=== PATIENT | female | born 1980 | race Two or more races ===

== ENCOUNTER 2020-06-10 17:08 | Outpatient (CLI) | payer BC, SELFPAY ==
--- NOTE | ~2020-06-10 | MM_ITS ---
EXAMINATION: MM screening [facility] BI w saida HISTORY: Screening mammogram TECHNIQUE: Craniocaudal and mediolateral oblique 3-D tomosynthesis images were obtained and synthetic 2-D images were generated. CAD analysis was submitted and interpreted. COMPARISON: 04/12/2019 bilateral digital screening mammogram BREAST PARENCHYMAL COMPOSITION: The breasts are almost entirely fatty. FINDINGS: There is no evidence of suspicious mass, calcification, or architectural distortion to sugg est malignancy in either breast. There has been no suspicious interval change. IMPRESSION: 1. No mammographic evidence of malignancy. 2. Recommend routine screening mammography in one year. BI-RADS Category 1: Negative Reviewed, dictated and finalized at location A. [employer] TRA[employer]OL TECHNICIAN
== END 2020-06-10 17:09 | disposition home or self-care (01) ==
LOC: ANHIMG 17:15
PROVIDERS: PCP Emergency Medicine
DX: Z12.31 Encounter for screening mammogram for malignant neoplasm of breast (principal)
CPT/HCPCS: 77063; 77067

== ENCOUNTER 2021-07-16 16:19 | Outpatient (CLI) | payer BC, SELFPAY ==
--- NOTE | ~2021-07-16 | MM_ITS ---
EXAMINATION: MM screening [facility] BI w saida HISTORY: Screening mammogram TECHNIQUE: Craniocaudal and mediolateral oblique 3-D tomosynthesis images were obtained and synthetic 2-D images were generated. CAD analysis was submitted and interpreted. COMPARISON: 06/10/2020, 04/12/2019 BREAST PARENCHYMAL COMPOSITION: There are scattered areas of fibroglandular density. FINDINGS: There is no evidence of suspicious mass, calcification, or architectural distortion to sugg est malignancy in either breast. There has been no suspicious interval change. IMPRESSION: 1. No mammographic evidence of malignancy. 2. Recommend routine screening mammography in one year. BI-RADS Category 1: Negative Reviewed, dictated and finalized at location A. TER FISHERMAN
== END 2021-07-16 16:20 | disposition home or self-care (01) ==
LOC: ANHIMG 16:21
PROVIDERS: PCP Emergency Medicine
DX: Z12.31 Encounter for screening mammogram for malignant neoplasm of breast (principal)
CPT/HCPCS: 77063; 77067

== ENCOUNTER 2021-09-25 15:29 | Emergency (ER) | payer BC, SELFPAY ==
[2021-09-25 15:38] VITALS: BP 155/68; PULSE 90; RESP 16; TEMP 37.3; O2SAT 98
--- NOTE | 2021-09-25 16:19 | ED.URI ---
HPI - URI/Sore Throat General Chief Complaint: Upper Respiratory Infection Stated Complaint: uri Time Seen by Provider: 09/25/21 16:04 Source: patient and RN notes reviewed Mode of arrival: ambulatory Limitations: no limitations History of Present Illness HPI Narrative: Patient presents today complaining of 4-day history productive cough, copious postnasal drip and rhinorrhea, with 3 episodes of diarrhea that started today. Denies any blood or mucus in her stool. Denies abdominal pain. Denies shortness of breath, fever, sore throat, ear pain. This week she has taken 2 home COVID-19 test that were negative. She has also been taking NyQuil cold and flu and Benadryl without much relief. Patient also states she has allergies. MD elicited complaint: cough and rhinorrhea Related Data Home Medications Medication Instructions Recorded Confirmed norethindrone (contraceptive) 0.35 mg PO DAILY 09/25/21 09/25/21 Allergies Allergy/AdvReac Type Severity Reaction Status Date / Time amoxicillin AdvReac Unknown YEAST Verified 09/25/21 15:32 INFECTION Review of Systems Review of Systems: CONSTITUTIONAL: Denies body aches, fever, chills, or sweats. EYES: Denies visual changes, redness, or discharge. ENT: Denies congestion, sore throat, or otalgia.+ Rhinorrhea, postnasal drip CARDIOVASCULAR: Denies chest pain, palpitations, or edema. RESPIRATORY: Denies dyspnea.+ Cough GASTROINTESTINAL: Denies abdominal pain, nausea, vomiting. + Diarrhea GENITOURINARY: Denies dysuria or hematuria. SKIN: Denies rash, itching, or wounds. MUSCULOSKELETAL: Denies back pain, joint pain, or myalgia. NEUROLOGIC: Denies headache, numbness, tingling, or weakness. PSYCH: Denies depression or anxiety. PMFSH Comments At time of signature, I have reviewed and agree with nursing past medical, surgical, social and family history unless otherwise noted. Please see nursing chart for further information. There is no relevant family history pertinent to the presenting complaint Exam Narrative: GENERAL: Well-appearing, well-nourished, and in no acute distress. HEAD: Normocephalic, atraumatic. EYES: EOMI. No redness or drainage. Conjunctivae normal. ENT: Mucous membranes pink and moist. Nares congested bilaterally with rhinorrhea. No rhinorrhea. TMs normal bilaterally. Throat normal. Uvula midline. NECK: Normal AROM. Supple. No lymphadenopathy. CHEST: No respiratory distress. Clear to auscultation. HEART: Regular rate and rhythm. No murmur appreciated. Normal peripheral pulses. EXTREMITIES: Normal range of motion. No edema. SKIN: Warm, dry, no rash. Capillary refill normal. Normal skin turgor. NEURO: No focal deficits. Alert and oriented x3. Gait steady. PSYCH: Normal affect. No signs of depression or anxiety. Course Course Level of Care: Express Care Visit Vital Signs Vital signs: Vital Signs Temperature 99.2 F 09/25/21 15:38 Pulse Rate 90 09/25/21 15:38 Respiratory Rate 16 09/25/21 15:38 Blood Pressure 155/68 H 09/25/21 15:38 Pulse Oximetry 98 09/25/21 15:38 Temperature 99.2 F 09/25/21 15:38 Pulse Rate 90 09/25/21 15:38 Respiratory Rate 16 09/25/21 15:38 Blood Pressure 155/68 H 09/25/21 15:38 Pulse Oximetry 98 09/25/21 15:38 Reviewed. Pt has been instructed to follow up with her PCP regarding her elevated blood pressure today. MDM - URI/Sore Throat Differential Diagnosis Differential diagnosis: Likely upper respiratory infection, sinusitis, viral infection, bronchitis and other (Gastroenteritis, colitis) Critical Care Time Critical Care Time Critical Care Time: No Discharge Plan Discharge Clinical Impression: Viral syndrome Patient Disposition: Home, Self-Care Condition: Stable Instructions: Viral Syndrome (ED) Additional Instructions: Your symptoms are likely due to a viral illness, which is not treated with antibiotics. Virus symptoms can last for up to 10-14 days. Take Tylen
== END 2021-09-25 16:27 | disposition home or self-care (01) ==
PROVIDERS: Emergency Provider Nurse Practitioner
DX: B34.9 Viral infection, unspecified (principal)
CPT/HCPCS: 99213; G0463

== ENCOUNTER 2021-10-30 18:40 | Emergency (ER) | payer BC, SELFPAY ==
[2021-10-30 18:48] VITALS: BP 135/64; PULSE 74; RESP 16; TEMP 36.9; O2SAT 100
--- NOTE | 2021-10-30 19:29 | ED.EAR ---
HPI - Ear Problem General Chief complaint: Ear Stated complaint: Ear Pain Time Seen by Provider: 10/30/21 19:30 Source: patient Mode of arrival: ambulatory Limitations: no limitations History of Present Illness HPI Narrative: 41-year-old female presents with complaint of left-sided neck jaw pain since this morning. Reports that left side of neck felt swollen. It is painful when chewing. Does not think it is related to any type of dental infection. No known cavities or bad teeth. Denies fever chills. Denies ear pain. Denies change in hearing. No URI symptoms. All systems reviewed and negative except as noted above. Related Data Home Medications Medication Instructions Recorded Confirmed norethindrone (contraceptive) 0.35 mg PO DAILY 09/25/21 10/30/21 Allergies Allergy/AdvReac Type Severity Reaction Status Date / Time amoxicillin AdvReac Intermediate YEAST Verified 10/30/21 19:07 INFECTION Review of Systems Review of Systems: CONSTITUTIONAL: Denies fever, chills, or sweats. EYES: Denies visual changes, redness, or discharge. ENT: Denies rhinorrhea, congestion, sore throat, or otalgia. Reports pain to right side of jaw and neck. CARDIOVASCULAR: Denies chest pain, palpitations, or edema. RESPIRATORY: Denies cough or dyspnea. GASTROINTESTINAL: Denies abdominal pain, nausea, vomiting, or diarrhea. GENITOURINARY: Denies dysuria or hematuria. SKIN: Denies rash or itching. MUSCULOSKELETAL: Denies back pain, joint pain, or myalgia. NEUROLOGIC: Denies headache, numbness, or weakness. PSYCHIATRIC: Denies anxiety or depression. All other systems reviewed are negative, except as documented in HPI. PMFSH Comments At time of signature, agree with nursing past medical, surgical, social and family history. There is no relevant family history pertinent to the presenting complaint. Exam Narrative: GENERAL: This is a well-nourished, well-developed patient, in no apparent distress. HEAD: normocephalic, atraumatic. EYES: PERRL. Sclera clear/white. Vision is grossly intact. EARS: External ears normal, auditory canals clear and without drainage, TMs normal without perforation. Hearing grossly intact. NOSE: External nose normal THROAT: Mucous membranes moist, posterior pharynx clear. Mouth: No broken or decayed teeth. No dental abscess noted. NECK: Enlargement of left parotid gland and enlargement of submandibular lymph nodes on left side. Tender on palpation. CARDIOVASCULAR: Regular rate and rhythm without murmurs, gallops, or rubs. RESPIRATORY: Clear to auscultation. Breath sounds equal bilaterally. No wheezes, rales, or rhonchi. SKIN: warm, Dry, intact with no suspicious lesions or rash, good texture and turgor. NEURO: awake, alert, and oriented to person, place and time. There were no obvious focal neurologic abnormalities. EXTREMITIES: Normal range of motion to all extremities. Course Course Level of Care: Express Care Visit Vital Signs Vital signs: Vital Signs Temperature 36.9 C 10/30/21 18:48 Pulse Rate 74 10/30/21 18:48 Respiratory Rate 16 10/30/21 18:48 Blood Pressure 135/64 10/30/21 18:48 Pulse Oximetry 100 10/30/21 18:48 Temperature 36.9 C 10/30/21 18:48 Pulse Rate 74 10/30/21 18:48 Respiratory Rate 16 10/30/21 18:48 Blood Pressure 135/64 10/30/21 18:48 Pulse Oximetry 100 10/30/21 18:48 Reviewed Medical Decision Making MDM Narrative Medical decision making narrative: Patient is aware of diagnosis, understands and agrees to treatment plan. Anticipatory guidance given. Patient agrees to follow-up as directed and is aware of reasons to seek care at the emergency department. Portions of this record may have been created with voice recognition software Vital Signs Vital Signs: Vital Signs Temperature 36.9 C 10/30/21 18:48 Pulse Rate 74 10/30/21 18:48 Respiratory Rate 16 10/30/21 18:48 Blood Pressure 135/64 10/30/21 18:48 Pulse Oximetry 100 10/30
== END 2021-10-30 19:40 | disposition home or self-care (01) ==
PROVIDERS: Emergency Provider Nurse Practitioner Family; PCP Emergency Medicine
DX: K11.20 Sialoadenitis, unspecified (principal); I10 Essential (primary) hypertension
CPT/HCPCS: 99213; G0463

== ENCOUNTER 2022-05-11 08:51 | Emergency (ER) | payer BC, SELFPAY ==
--- NOTE | 2022-05-11 09:13 | ED.URI ---
HPI - URI/Sore Throat General Chief Complaint: Upper Respiratory Infection Stated Complaint: cough/fever Time Seen by Provider: 05/11/22 09:13 Source: patient and RN notes reviewed Mode of arrival: ambulatory Limitations: no limitations History of Present Illness HPI Narrative: 42-year-old female presents to the [facility] with her son. Reports 8-year-old son's been sick since . She started with symptoms of fever, cough and body aches on Tuesday. Has tried Vicks cough and cold with minimal relief. MD elicited complaint: nasal congestion Related Data Home Medications Medication Instructions Recorded Confirmed norethindrone (contraceptive) 0.35 0.35 mg PO DAILY 09/25/21 05/11/22 mg tablet Allergies Allergy/AdvReac Type Severity Reaction Status Date / Time Penicillins Allergy Intermediate Rash Verified 05/11/22 09:54 amoxicillin AdvReac Intermediate YEAST Verified 05/11/22 09:21 INFECTION Review of Systems Review of Systems: All systems reviewed & are unremarkable except as noted in HPI and below Constitutional: Constitutional: Reports as per HPI, Reports chills and Reports fever(s) Eyes: Eyes: Reports no additional eye complaints ENT: Reports system reviewed and no additional complaints, except as documented Cardiovascular: Cardiovascular: Reports no additional cardiovascular complaints Respiratory: Respiratory: Reports as per HPI, Reports no additional respiratory complaints, Reports chest congestion, Reports cough, Denies dyspnea and Denies wheezing Gastrointestinal: Gastrointestinal: Reports no additional gastrointestinal complaints Musculoskeletal: Musculoskeletal: Reports no additional musculoskeletal complaints Integumentary/Breasts: Skin/Breast: Reports system reviewed and no additional complaints, except as docu Neurologic: Reports system reviewed and no additional complaints, except as documented Psychiatric: Psychiatric: Reports no additional psychiatric complaints Allergic/Immunologic: Allergic/Immunologic: Reports no additional allergic/immunologic complaints [facility] Social History Social History (Updated 05/11/22 @ 18:53 by Kandace Zhu, SUE) Living arrangements: with family Gender identity (if verbalized by the patient): Female Comments At the time of my signature, I reviewed and agree with the nursing past medical, surgical, social, and family history. There is no relevant family history pertinent to the patient complaint. Exam Const: General: healthy appearing, no acute distress, alert and well nourished Nutritional Appearance: well nourished and obese Orientation/consciousness: patient oriented x3 Limitations: no limitations HENMT: Head: normal to inspection Ears: external ears normal, TM's normal bilaterally and EAC's normal Face/Nose/Sinus: Nasal discharge present clear Face and sinus: normal facial exam Mouth: Yes Normal oral and palatal mucosa present, Yes lip normal and Yes moist mucous membranes Throat: posterior oropharynx normal and uvula midline Eyes: General: appearance normal, both eyes and all related structures Conjunctivae: conjunctivae normal Pupils: Equal, round and reactive pupils present Neck: Neck: normal visual inspection, no lymphadenopathy and no meningeal signs Chest: Chest palpation & inspection: normal inspection of the chest Resp: Effort & Inspection: normal respiratory effort and no use of accessory muscles Auscultation: clear to auscultation bilaterally, no crackles, no rales, no rhonchi and no wheezes Cardio: Rate: regular rate Rhythm: regular rhythm Skin: General skin exam: normal color Rashes: no rashes Wounds: no wounds Neuro: General: patient oriented x3, moves all extremities, no meningeal signs and no focal motor deficits Cranial nerves: Yes Equal, round and reactive pupils present Speech: normal speech Gait exam (Neuro): Normal gait present Extrem: General: normal to inspection, full ROM and capillary refill nor
[2022-05-11 09:19] VITALS: BP 137/81; PULSE 115; RESP 16; TEMP 37.7; O2SAT 97
== END 2022-05-11 10:19 | disposition home or self-care (01) ==
PROVIDERS: Emergency Provider Nurse Practitioner; PCP Emergency Medicine
DX: J10.1 Influenza due to other identified influenza virus with other respiratory manifestations (principal)
CPT/HCPCS: 87804; 99213; G0463

== ENCOUNTER 2022-09-02 09:06 | Outpatient (RCR) | payer BC, SELFPAY ==
[2022-09-02 09:22] VITALS: BMI 44.2
[2022-09-02 10:19] VITALS: BMI 44.2
== END 2022-10-25 14:59 | disposition home or self-care (01) ==
LOC: ANHDMC 09:06
PROVIDERS: PCP Family Medicine; Visit Provider Family Medicine
DX: E11.9 Type 2 diabetes mellitus without complications (principal); Z71.3 Dietary counseling and surveillance; Z71.89 Other specified counseling
CPT/HCPCS: 97802; G0108

== ENCOUNTER 2022-11-11 08:33 | Outpatient (CLI) | payer BC, SELFPAY ==
--- NOTE | ~2022-11-11 | MM_ITS ---
EXAMINATION: MM screening [facility] BI w saida HISTORY: Screening mammogram TECHNIQUE: Craniocaudal and mediolateral oblique 3-D tomosynthesis images were obtained and synthetic 2-D images were generated. CAD analysis was submitted and interpreted. COMPARISON: 07/16/2021, 06/10/2020, 04/12/2019 BREAST PARENCHYMAL COMPOSITION: There are scattered areas of fibroglandular density. FINDINGS: No suspicious mass, calcification, or architectural distortion are identified in either darryl ast to suggest malignancy. There has been no suspicious interval change. IMPRESSION: 1. No mammographic evidence of malignancy. 2. Recommend routine screening mammography in one year. BI-RADS Category 1: Negative Reviewed, dictated and finalized at location A.
== END 2022-11-11 08:34 | disposition home or self-care (01) ==
LOC: ANHIMG 08:36
PROVIDERS: PCP Family Medicine; Visit Provider Student in an Organized Health Care Education/Training Program
DX: Z12.31 Encounter for screening mammogram for malignant neoplasm of breast (principal)
CPT/HCPCS: 77063; 77067

== ENCOUNTER 2023-01-27 14:55 | Outpatient (CLI) | payer BC, SELFPAY ==
[2023-01-27 15:34] LABS: Hematocrit 39.2 % (37.0-47.0); Hemoglobin 11.9 g/dL (12.0-15.0)
[2023-01-27 15:43] LABS: Anion Gap 4 mmol/L (8-16); Blood Urea Nitrogen 8 mg/dL (7-17); Calcium 8.8 mg/dL (8.4-10.2); Carbon Dioxide 29 mmol/L (22-30); Chloride 104 mmol/L (98-107); Estimated Glomerular Filt Rate > 60; Glucose 102 mg/dL (65-110); Potassium 3.9 mmol/L (3.4-5.0); Sodium 137 mmol/L (137-145)
== END 2023-01-27 14:56 | disposition home or self-care (01) ==
LOC: ANHLAB 14:57
PROVIDERS: Anesthesiology; PCP Family Medicine; Visit Provider Student in an Organized Health Care Education/Training Program
DX: E11.9 Type 2 diabetes mellitus without complications (principal); N92.1 Excessive and frequent menstruation with irregular cycle; Z01.818 Encounter for other preprocedural examination
CPT/HCPCS: 36415; 80048; 85014; 85018

== ENCOUNTER 2023-01-31 02:18 | Day surgery (SDC) | payer BC, SELFPAY ==
[2023-01-25 15:34] VITALS: BMI 37.5
--- NOTE | 2023-01-25 15:35 | SUR.PREOP ---
Report to the Outpatient Waiting Room, entrance under the green pavilion located off [facility], at time 1000_ on date _01/31/23 . Planned Procedure Time: _1200 . Time changes happen often and if your time is changed the preop area will call you the afternoon before. - You and your visitor will be asked to self-screen and do not enter if you have any COVID symptoms. - A mask is optional within the hospital at this time. Patients may have clear liquids (water, carbonated beverages, clear teas, apple juice) until 3 hours prior to surgery with a maximum of 20 ounces. - No food from midnight until time of surgery - Infants may have breast milk until 4 hours before surgery, infant formula 6 hours prior to surgery. - Children will be allowed to drink immediately following surgery. If applicable, please bring a bottle or sippy cup to assist with drinking. Juice, water, soda, and popsicles are readily available. For infants on formula, please bring formula the day of surgery. Pacifiers are allowed. Take the following medications with a SIP of water the morning of surgery: __n/a DO NOT STOP ANY OF YOUR OTHER PRESCRIPTION MEDICATIONS PRIOR TO SURGERY ?EXCEPT THE FOLLOWING Medications to discontinue per physician n/a Date to take last dose__n/a Please no make-up, nail italian, hairspray, perfume, deodorant, or body powder the day of surgery. No jewelry (including any body piercings) or valuables the day of surgery, leave them at home. Please take a shower or bath the night before, or the morning of, surgery with an antibacterial soap. Wear comfortable, loose fitting clothing. Children are encouraged to wear pajamas. - Jewelry must be removed prior to entering the operating room. Rings and piercings that are not removed may be cut off. - The hospital will not accept responsibility for valuables. - Please leave all valuables, including medications, at home the day of surgery. If you are going home after surgery, a licensed semi driver must drive you home. - NO public transportation without another adult if you receive anesthesia. - We recommend that an adult stay with you for 24 hours following discharge. - We also recommend that you do not drive, make important decision, drink alcoholic beverages, or take any drugs that were not prescribed by your health care provider for at least 24 hours after your discharge time. For Pediatric surgeries, we recommend two adults accompany the child home. Follow any additional instructions given to you from your surgeon. If you or anyone in your household have experienced Covid symptoms in the past week, please notify your surgeon or the nurse liaison at the phone number below for possible testing. Telephone instructions given to _austin steen and asked if any additional questions and then verbalized understanding. Patient advised to call surgeon office or pre surgery nurse liaison [phone] if any additional questions.
--- NOTE | 2023-01-28 18:30 | P.PNAN_ITS ---
Anes - Eval Pre Procedure Procedure: Operation Date: 01/31/23 12:00 Proposed Procedures p Hysteroscopy Dilation and Curettage - Charles Seymour MD Date/Time: 01/28/23 18:30 Pre Op Diagnosis: abnormal uterine bleeding Patient Data Age: 42 Gender: F Height: 1.7 m Weight: 108.63 kg Allergies Allergy/AdvReac Type Severity Reaction Status Date / Time Penicillins Allergy Intermediate Rash Verified 01/25/23 15:05 amoxicillin AdvReac Intermediate YEAST Verified 01/25/23 15:05 INFECTION Home Medications Medication Instructions Recorded Confirmed Type spironolactone 50 mg tablet 50 mg PO QAM #30 tabs 08/17/22 01/25/23 Rx semaglutide 1 mg/dose (4 mg/3 mL) 1 mg (0.75 mL) subcut WEEKLY #3 mL 01/24/23 01/25/23 Rx subcutaneous pen injector (Ozempic) Patient hx anesthesia problems: none Family hx anesthesia problems: none Results Review: All pre-operative results and documents have been reviewed as part of the pre- operative evaluation. [facility] Past Medical History Medical History (Updated 01/28/23 @ 18:31 by Tamanna Sharma CRNA) Back pain BMI greater than 40 Diabetes type 2, controlled Kidney stone Migraines, neuralgic New onset type 2 diabetes mellitus Obesity NESTOR (obstructive sleep apnea) PCO (polycystic ovaries) Screening for lipid disorders Surgical History Surgical History H/O gynecological procedure D&C ~2009 Polyps removed ~2019 History of delivery History of tonsillectomy Family History Family History Other Asthma Depression Diabetes mellitus Heart disease Hypertension Social History Social History Smoking status: Former smoker Tobacco type: cigarettes Smoking end date: 08/12/13 Additional smoking assessment comments: 2 1/2 ppd x 20 years Alcohol intake: current Drinks per week: 1 Substance use: never Lack of Transportation: No Lack of Food: Sometimes True Current Housing: I Have Housing Concerned About Future Housing: No Difficulty Paying Gas/Electric Bills: No Difficulty Paying for Meds: No Currently Unemployed: No Education: Associate Degree Difficulty w/ Childcare or Family Care: No Living arrangements: alone Occupation/Education: occupation 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
--- NOTE | 2023-01-31 07:42 | PM.IMHP ---
H&P: HPI History of Present Illness Date/Time: 01/31/23 07:42 Chief Complaint: Abnormal uterine bleeding Narrative: 42-year-old female who presents with persistent abnormal uterine bleeding.? Patient states she has been bleeding since 12/01/2022.? Patient's history is complicated by PCOS.? Patient was started? on Drosperinone contraceptive pill.? patient was having bothersome breakthrough bleeding on this pill.? Patient was then started on a combined estrogen and progesterone pill.? Patient has continued to bothersome bleeding.? Patient states this has happened to her in the past.? Patient states she had a? hysteroscopy D&C which showed multiple polyps within the uterus.? Patient's ultrasound showed a thickened endometrium within regular contours.? Suspect some level of hyperplasia with polypoid appearance.? Patient also complains of increased headaches after starting combined oral contraceptive pills. Review of Systems Cardiovascular: Cardiovascular: Denies chest pain, Denies leg edema, Denies palpitations, Denies dyspnea and Denies dyspnea on exertion Respiratory: Respiratory: Denies cough, Denies dyspnea and Denies dyspnea on exertion Gastrointestinal: Gastrointestinal: Denies abdominal pain, Denies constipation, Denies diarrhea, Denies nausea and Denies vomiting Genitourinary: Genitourinary: Denies hematuria, Denies urinary frequency, Denies dysuria, Denies pelvic pain, Denies urinary incontinence and Denies vaginal discharge Neurologic: Reports system reviewed and no additional complaints, except as documented Psychiatric: Psychiatric: Reports no additional psychiatric complaints Endocrine: Endocrine: Denies palpitations PMFSH Past Medical History Medical History (Updated 01/31/23 @ 07:43 by Charles Seymour MD) Back pain BMI greater than 40 Diabetes type 2, controlled Kidney stone Migraines, neuralgic New onset type 2 diabetes mellitus Obesity NESTOR (obstructive sleep apnea) PCO (polycystic ovaries) Screening for lipid disorders Surgical History Surgical History H/O gynecological procedure D&C ~2009 Polyps removed ~2019 History of delivery History of tonsillectomy Family History Family History Other Asthma Depression Diabetes mellitus Heart disease Hypertension Social History Social History Smoking status: Former smoker Tobacco type: cigarettes Smoking end date: 08/12/13 Additional smoking assessment comments: 2 1/2 ppd x 20 years Alcohol intake: current Drinks per week: 1 Substance use: never Lack of Transportation: No Lack of Food: Sometimes True Current Housing: I Have Housing Concerned About Future Housing: No Difficulty Paying Gas/Electric Bills: No Difficulty Paying for Meds: No Currently Unemployed: No Education: Associate Degree Difficulty w/ Childcare or Family Care: No Living arrangements: alone Occupation/Education: occupation 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 Gender identity (if verbalized by the patient): Female Sexual Orientation (if Verbalized by the Patient): Straight or Heterosexual Spiritual care concerns: No Meds Home Medications and Allergies Home Medications Medication Instructions Recorded Confirmed Type spironolactone 50 mg tablet 50 mg PO QAM #30 tabs 08/17/22 01/25/23 Rx semaglutide 1 mg/dose (4 mg/3 mL) 1 mg (0.75 mL) subcut WEEKLY #3 mL 01/24/23 01/25/23 Rx subcutaneous pen injector (Ozempic) Allergies Allergy/AdvReac Type Severity Reaction Status Date / Time Penicillins Allergy Intermediate Rash Verified 01/25/23 15:05 amoxicillin AdvReac Intermediate YEAST Verified 01/25/23 15:05 INFECTION Exam Const: General: no acute distress Eyes: EOM: EOMs intact bilaterally Neck: Neck: sup
--- NOTE | 2023-01-31 07:44 | WPDHPUPDATE1 ---
History and Physical Update Update Date/Time: 01/31/23 07:44 History and Physical has been reviewed, including an updated exam of the patient. There are NO changes in the patient's condition. Risks, benefits, and alternatives have been discussed and questions answered. Patient agrees to proceed with procedure.
[2023-01-31] MEDS: ACETAMINOPHEN 500 MG TABLET 1000 MG PO (10:12)
[2023-01-31 10:20] VITALS: BP 141/80; PULSE 87; RESP 16; TEMP 36.5; O2SAT 100
[2023-01-31] MEDS: LACTATED RINGERS 1,000 ML 30 ML IV CONT (10:34)
--- NOTE | 2023-01-31 10:34 | P.PNAN_ITS ---
Anes - Eval Final PreProcedure Day of Procedure 01/31/23 10:34 Patient weight: obese Heart: regular rate and rhythm Lungs: clear to auscultation Airway: Mallampati scale class II Neurological: alert and oriented Last oral intake: >/= 8 hours ASA classification: III Emergent: no Anesthetic plan: proceed Anesthesia type and monitoring: general GIVS and standard monitoring Results Review: All pre-operative results and documents have been reviewed as part of the pre- operative evaluation. Informed Consent: The patient's anesthetic plan and its attendant risks and benefits were discussed with the patient/family/POA. Questions were solicited and answers provided to the satisfaction of the patient/family/POA.
[2023-01-31 11:07] LABS: Glucose Point of Care 92 mg/dl (65-105)
--- NOTE | 2023-01-31 12:15 | P.OP_ITS ---
Procedure Note - Detailed Date of Procedure 01/31/23 Pre-op Diagnosis abnormal uterine bleeding Post-op Diagnosis Same Procedure Performed paracervical block hysteroscopy dilation & curettage Surgeon Charles Seymour MD Anesthesia General Indications abnormal uterine bleeding Findings globally thickened endometrium, Multiple polypoid lesions within the endometrial cavity. Normal tubal ostia bilaterally Description of Procedure Gi Sweeney presents for hysteroscpy D&C for AUB. She was counseled as to the indications, risks, benefits, and alternatives to surgery, with the risks including bleeding, infect ion, damage to surrounding organs, VTE, and complications of anesthesia. Her verbal and written consent was obtained. PROCEDURE: The patient was taken to the OR and general anesthesia induced. She was prepped and draped in Obey stirrups with support of the back and bilateral lower extremities. I/O catheterization performed of the bladder. The above findings were noted. Infiltration with 1% lidocaine at the 3 and 9 o'clock cervical positions was performed. A single tooth tenaculum was placed on the anterior lip of the cervix. The cervix was dilated with sequential Jillian dilators. Hysteroscopy, using a normal saline medium, was performed and showed the above findings. Currettage was performed through the operative hysteroscope with the hysteroscopic resection blade. Removal of endometrial polyp and currettage of endomterium was performed under direct visualiztion. The tenaculum was removed and hemostasis was observed. The patient tolerated the procedure well. Sponge, lap, and needle counts were correct. The patient was taken to the recovery room in stable condition. Estimated Blood Loss 10 Urine Output 25 Drains No Packing No Pathology Yes (endometrial curettings ) Complications No immediate complications Condition Stable Disposition PACU [facility] Billing Surgery - Charge Forward: Surgery Billing
[2023-01-31 12:18] VITALS: BP 136/71; PULSE 75; RESP 20; O2SAT 100
[2023-01-31 12:30] LABS: Glucose Point of Care 75 mg/dl (65-105)
[2023-01-31 12:50] VITALS: BP 142/80; PULSE 63; RESP 20
[2023-01-31 13:20] VITALS: BP 147/76; PULSE 61; RESP 20
== END 2023-01-31 13:33 | disposition home or self-care (01) ==
PROVIDERS: PCP Family Medicine; Visit Provider Student in an Organized Health Care Education/Training Program
PROC: 0U5B8ZZ Destruction of Endometrium, Via Natural or Artificial Opening Endoscopic (ICD-10-PCS; CPT 58563; principal; 2023-01-31 12:00)
DX: N92.1 Excessive and frequent menstruation with irregular cycle (principal); N84.0 Polyp of corpus uteri; E28.2 Polycystic ovarian syndrome; E11.9 Type 2 diabetes mellitus without complications; G47.33 Obstructive sleep apnea (adult) (pediatric); Z79.899 Other long term (current) drug therapy; Z87.891 Personal history of nicotine dependence
CPT/HCPCS: 58558; 82948; 88305; A9270; J2250; J2704; J3010; J7120

== ENCOUNTER 2023-12-02 13:09 | Outpatient (CLI) | payer OTHER, SELFPAY ==
--- NOTE | ~2023-12-02 | MM_ITS ---
EXAMINATION: MM screening papa BI w saida HISTORY: Screening mammogram TECHNIQUE: Craniocaudal and mediolateral oblique 3-D tomosynthesis images were obtained and synthetic 2-D images were generated. CAD analysis was submitted and interpreted. COMPARISON: 11/11/2022, 07/16/2021 lateral screening mammogram examinations BREAST PARENCHYMAL COMPOSITION: The breasts are almost entirely fatty. FINDINGS: There is no evidence of suspicious mass, calcification, or architectural distortion to sugg est malignancy in either breast. There has been no suspicious interval change. IMPRESSION: 1. No mammographic evidence of malignancy. 2. Recommend routine screening mammography in one year. BI-RADS Category 1: Negative Reviewed, dictated and finalized at location B.
== END 2023-12-02 13:10 | disposition home or self-care (01) ==
LOC: ANHIMG 13:12
PROVIDERS: PCP Family Medicine; Visit Provider Student in an Organized Health Care Education/Training Program
DX: Z12.31 Encounter for screening mammogram for malignant neoplasm of breast (principal)
CPT/HCPCS: 77063; 77067